=== PATIENT | male | born 1985 | race Caucasian/White ===

== ENCOUNTER 2023-11-22 18:20 | Emergency (ER) | payer OTHER, SELFPAY ==
--- NOTE | 2023-11-22 18:26 | ED.GENADULT ---
HPI - General Adult General Chief complaint: Ear Stated complaint: Ear Irritation Time Seen by Provider: 11/22/23 18:27 Source: patient, RN notes reviewed and old records reviewed Mode of arrival: ambulatory Limitations: no limitations History of Present Illness HPI narrative: 38-year-old male presents to the [facility] with right ear pressure. Has a history of tendinitis. States it has been worse over the last several days. Right ear pressure irritation for a couple of weeks. States he has taken Tylenol and Motrin, no other treatment prior to arrival States that he does use Q-tips Related Data Allergies Allergy/AdvReac Type Severity Reaction Status Date / Time No Known Allergies Allergy Verified 11/22/23 18:21 Review of Systems Review of Systems: All systems reviewed & are unremarkable except as noted in HPI and below Constitutional: Constitutional: Reports no additional constitutional complaints Eyes: Eyes: Reports no additional eye complaints ENT: Reports as per HPI and Reports otalgia Cardiovascular: Cardiovascular: Reports no additional cardiovascular complaints, Denies chest pain and Denies dyspnea Respiratory: Respiratory: Reports no additional respiratory complaints, Denies chest congestion, Denies cough and Denies dyspnea Gastrointestinal: Gastrointestinal: Reports no additional gastrointestinal complaints, Denies abdominal pain, Denies nausea and Denies vomiting Musculoskeletal: Musculoskeletal: Reports no additional musculoskeletal complaints Integumentary/Breasts: Skin/Breast: Reports system reviewed and no additional complaints, except as docu Neurologic: Reports system reviewed and no additional complaints, except as documented Psychiatric: Psychiatric: Reports no additional psychiatric complaints Allergic/Immunologic: Allergic/Immunologic: Reports no additional allergic/immunologic complaints PMFSH Social History Social History Smoking status: Never smoker Alcohol intake: current Comments At the time of my signature, I reviewed and agree with the nursing past medical, surgical, social, and family history. There is no relevant family history pertinent to the patient complaint. Exam Const: General: cooperative, healthy appearing, comfortable, no acute distress, well developed, alert and well nourished Nutritional Appearance: well nourished Orientation/consciousness: patient oriented x3 Limitations: no limitations HENMT: Head: normal to inspection Ears: hearing grossly normal bilaterally, external ears normal, Abnormal EAC present erythema on the right and edema on the right; no EA tenderness and no otic discharge and TM abnormal with fluid behind the TM bilateral (Clear fluid); not erythematous Face/Nose/Sinus: Normal external nose present, Normal nares present, Normal nasal mucous membranes and turbinates present, normal facial exam and face symmetric Face and sinus: normal facial exam and face symmetric Throat: posterior oropharynx normal, uvula midline and no uvular edema Eyes: General: appearance normal, both eyes and all related structures Alignment and Position: alignment normal Periorbital: periorbital findings normal Pupils: Equal, round and reactive pupils present EOM: EOMs intact bilaterally Neck: Neck: normal visual inspection, full ROM, no lymphadenopathy and no meningeal signs Chest: Chest palpation & inspection: normal inspection of the chest Resp: Effort & Inspection: normal respiratory effort and able to speak in complete sentences Auscultation: clear to auscultation bilaterally, no crackles, no rales, no rhonchi and no wheezes Cardio: Rate: regular rate Rhythm: regular rhythm Skin: General skin exam: normal color and no rashes or lesions noted Lesions: no lesions Rashes: no rashes Trauma: no lacerations or abrasions Wounds: no wounds Neuro: General: patient oriented x3, gait normal, tone normal, moves all ext
[2023-11-22 18:30] VITALS: BP 125/72; PULSE 58; RESP 18; TEMP 36.6; O2SAT 100
== END 2023-11-22 18:41 | disposition home or self-care (01) ==
PROVIDERS: Emergency Provider Nurse Practitioner; PCP Family Medicine
DX: H65.03 Acute serous otitis media, bilateral (principal); S00.412A Abrasion of left ear, initial encounter
CPT/HCPCS: 99213; G0463

== ENCOUNTER 2025-03-06 12:39 | Outpatient (CLI) | payer OTHER, SELFPAY ==
--- NOTE | 2025-03-06 12:49 | ECHO_ITS ---
Patient Info Name: Adair Stauffer Age: 39 years : 1985 Gender: Male Ht: 74 in Wt: 182 lbs BSA: 2.08 m2 HR: 56 bpm BP: 123 / 71 mmHg Heart Rhythm: Sinus Rhythm Technical Quality: Good Exam Date: 03/06/2025 12:51 PM Patient Status: O Admit Date: 03/06/2025 Exam Type: CA echo doppler color flow Complete two-dimensional, color flow and Doppler transthoracic echocardiogram is performed. Rack Worker: Eva Vega Attending Provider: Ari Brink Summary 1. Complete two-dimensional, color flow and Doppler transthoracic echocardiogram is performed. 2. Left ventricular chamber dimension is normal. 3. Left ventricular systolic function is normal, estimated at 65-70. 4. The left ventricular diastolic function is normal. 5. E/e' 7 is not elevated. 6. Left atrial chamber dimension is mildly enlarged. 7. There is mild aortic valve sclerosis. Left Ventricle Left ventricular chamber dimension is normal. Left ventricular systolic function is normal, estimated at 65-70. The left ventricular diastolic function is normal. E/e' 7 is not elevated. Right Ventricle Right ventricular chamber dimension is normal. Right ventricular systolic function is normal and with normal TAPSE 3.0 cm. Left Atria Left atrial chamber dimension is mildly enlarged. Right Atria Right atrial chamber dimension is normal. Aortic Valve The aortic valve is trileaflet. There is mild aortic valve sclerosis. There is no aortic valve stenosis. There is no aortic valve regurgitation. Pulmonic Valve There is no pulmonic regurgitation. Mitral Valve There is no mitral valve stenosis. There is no mitral valve regurgitation. Tricuspid Valve There is no tricuspid valve regurgitation. Pericardium/Pleural There is no pericardial effusion. Inferior Vena Cava Normal inferior vena cava with >50% collapse upon inspiration consistent with normal right atrial pressure, 5 mmHg. Aorta The aortic root size at the sinus of Valsalva is normal. Left Ventricular Outflow Tract Name Value Normal LVOT 2D LVOT Diameter 2.0 cm LVOT Doppler LVOT Peak Velocity 136 cm/s LVOT Peak Gradient 7 mmHg LVOT Mean Gradient 4 mmHg LVOT VTI 27 cm LVOT VTI/AV VTI Ratio 0.8 LVOT Stroke Volume 83 ml LVOT CO 4.4 l/min LVOT CI 2.1 l/min/m2 Pulmonic Valve Name Value Normal RVOT Doppler RVOT Peak Velocity 91 cm/s RVOT Peak Gradient 3 mmHg PV Doppler PV Peak Velocity 120 cm/s PV Peak Gradient 6 mmHg Mitral Valve Name Value Normal MV Diastolic Function MV E Peak Velocity 99 cm/s MV A Peak Velocity 45 cm/s MV E/A 2.2 MV Decel Time (PW) 161 ms MV Annular TDI MV E/e' (Septal) 9.5 MV E/e' (Lateral) 6.1 MV E/e' (Average) 7.8 Tricuspid Valve Name Value Normal Estimated PAP/RSVP RA Pressure 5 mmHg <=5 TV Annular TDI TV Lateral Kacey s' Velocity 16.4 cm/s >=9.5 Aorta Name Value Normal Ascending Aorta Ao Root Diameter (MM) 3.2 cm Ao Root Diam Index (MM) 1.5 cm/m2 Aortic Valve Name Value Normal AV Doppler AV Peak Velocity 156 cm/s AV Peak Gradient 10 mmHg AV Mean Gradient 5 mmHg AV VTI 33 cm AV Area (Cont Eq VTI) 2.5 cm2 >=3.0 AV Area (Cont Eq Raleigh) 2.7 cm2 AV DI (R[place]) 0.87 AV Regurgitation 2D LVOT Area 3.1 cm2 Ventricles Name Value Normal LV Dimensions 2D/MM IVS Diastolic Thickness (2D) 0.7 cm 0.6-1.0 LVID Diastole (2D) 5.7 cm 4.2-5.8 LVIW Diastolic Thickness (2D) 0.7 cm 0.6-1.0 LVID Systole (2D) 3.1 cm 2.5-4.0 LVOT Diameter 2.0 cm LV Mass (2D Cubed) 153.96 g 88.00-224.00 LV Mass Index (2D Cubed) 74 g/m2 49-115 Relative Wall Thickness (2D) 0.26 <=0.42 LV Fractional Shortening/Ejection Fraction 2D/MM LV Fractional Shortening (2D) 46 % 25-43 LV EF (2D Teichholz) 77 % LV Diastolic Volume (4C MOD) 105 ml LV EF (4C MOD) 71 % LV Diastolic Volume (2C MOD) 104 ml LV EF (2C MOD) 72 % LV Diastolic Volume (BP MOD) 105 ml 62-150 LV Diastolic Volume Index (BP MOD) 51 ml/m2 34-74 LV Systolic Volume (BP MOD) 30 ml 21-61 LV Systolic Volume Index (BP MOD) 14 ml/m2 11-31 LV EF (BP MOD) 72 % 52-72 LV Diastolic Length (4C) 8.6 cm LV Systolic Length (4C) 7.0 cm LV Stroke Volume (4C MOD) 75 ml Atria Name Value Normal LA Dimensions LA Dimension (MM) 4.8 cm 3.0-4.0 LA Volume (4C A-L) 62 ml LA Volume (BP A-L) 67 ml RA Dimensions RA Area (4C) 17.9 cm2 <=18.0 Report Signatures
--- OUTSIDE RECORDS SUMMARY | 2025-03-06 14:23 | XMS_ITS | Clinical Summary ---
Author Organization [facility] Address [address] [place] [place] [address] Care Team Providers Care Plant Anatomy Teacher Name Role Phone Timi Bello MD Primary Care Provider [phone] Source Comments [facility],non-owned Affiliates and Associated Physician Practices is amultiple site organization consisting of ambulatory clinics and hospital sitesin [place], [place], [place] and [place]. This disclosure is being madepursuant to the Care Everywhere program and may not contain all information available regarding this patient. Last updated 18.[facility] Allergies No known active allergies Medications * Be aware that medications may not be up to date on this document. Alwaysverify current medications with the patient. No known medications Social History Tobacco Use Types Packs/Day Years Used Date Smoking Tobacco: Never Smokeless Tobacco: Never Alcohol Use Standard Drinks/Week Comments Never 0 (1 standard drink = 0.6 oz pur e alcohol) Sex and Gender Information Value Date Recorded Sex Assigned at Not on file Legal Sex Male 1:17 PM REC[employer]IL SPRING W[employer]ER Gender Identity Not on file Sexual Orientation Not on file Last Filed Vital Signs Vital Sign Reading Time Taken Comments Blood Pressure 120/68 03/24/2024 11:37 AM [employer] Pulse 65 03/24/2024 11:37 AM [employer] Temperature - - Respiratory Rate - - Oxygen Saturation 100% 03/24/2024 11:37 AM [employer] Inhaled Oxygen Concentration - - Weight 87.5 kg (193 lb) 05/26/2024 10:48 AM [employer] Height 190.5 cm (6' 3) 05/26/2024 10:48 AM [employer]ING W[employer]ER Body Mass Index 24.12 05/26/2024 10:48 AM [employer]ING W[employer]ER Plan of Treatment Upcoming Encounters Date Type Department Care Team (Late st Contact Info) Description 05/11/2025 8:00 AM [employer]IL [employer]ING W[employer]ER Testing Visit [facility] [address] [place] [address] Hipolito LeiaLeila [address] [place], [place] [id number] 05/11/2025 8:30 AM [employer] Office Visit [facility] [address] [place] [address] Ramesh Ross MD [address] [place] [address] Health Maintenance Due Date Last Done Comments LIPID TESTING 1985 HIV SCREENING 07/29/1998 HEPATITIS C SCREENING 07/25/2001 DTAP/TDAP/TD VACCINES (1 - Tdap) 07/29/2002 HEPATITIS B VACCINE (1 of 3 - 19+ 3-dose series) 07/29/2002 HPV VACCINE (1 - 3-dose SCDM series) 07/29/2010 DEPRESSION SCREENING 05/03/2024 COVID-19 VACCINE (2 - 2024-2 6 season) 2025 04/11/2021 INFLUENZA VACCINE (#1) 2025 ZOSTER VACCINE (1 of 2) 07/29/2033 HIB VACCINE Aged Out No longer eligi ble based on patient's age to complete this topic MENINGOCOCCAL (Group B) VACC INE SHARED DECISION-MAKING Aged Out No longer eligibl e based on patient's age to complete this topic MENINGOCOCCAL GROUPS A/C/Y/W VACCINE Aged Out No longer eligible b ased on patient's age to complete this topic PNEUMOCOCCAL VACCINE Aged Out No long er eligible based on patient's age to complete this topic Insurance AETNA Care Teams Plant Anatomy Teacher Relationship Specialty Start Date End Date Timi Bello MD [address] [place] [address] PCP - General Family Medicine 03/24/24
--- OUTSIDE RECORDS SUMMARY | 2025-03-06 14:23 | XMS_ITS | Clinical Summary ---
Author Organization [facility] Address [address] [place] [address] Care Team Providers Care Artillery Specialist Name Role Phone Unavailable Primary Care Provider Unavailabl e Immunizations Immunization Administration Dates Next Due Covid-19, Mrna, Lnp-s, Pf, 30 Mcg/0.3 Ml Dose (P fizer) 04/11/2021 Social History Tobacco Use Types Packs/Day Years Used Date Smoking Tobacco: Never Assessed Sex and Gender Information Value Date Recorded Sex Assigned at Not on file Legal Sex Male 1:41 PM CDT Gender Identity Not on file Sexual Orientation Not on file Plan of Treatment Health Maintenance Due Date Last Done Comments Hepatitis C Virus (HCV) Screening 1985 TdaP Immunization 1985 Hepatitis B Immunization (1 of 3 - 19+ 3-dose series) 07/29/2002 Human Papillomavirus (HPV) Immunization (1 - 3-dose SCDM series) 07/29/2010 Influenza Immunization (#1) 2025 SARS-COV-2 Immunization ( season) 2025 04/11/2021 Respiratory Syncytial Virus (RSV) Immunization (Adult) (1 - 1-dose 75+ series) 07/29/2058 Meningococcal Immunization (ACWY) Aged Out No longer eligible based on patient's age to complete this topic Pneumococcal Immunization Combined Aged Out No longer eligible based on patient's age to complete this topic Rotavirus Immunization Aged Out No lo nger eligible based on patient's age to complete this topic
== END 2025-03-06 12:40 | disposition home or self-care (01) ==
LOC: ANHCARD 12:41
PROVIDERS: PCP Family Medicine; Visit Provider Nurse Practitioner Family
DX: I51.7 Cardiomegaly (principal); I35.8 Other nonrheumatic aortic valve disorders; G47.31 Primary central sleep apnea
CPT/HCPCS: 93306

== ENCOUNTER 2025-03-07 16:18 | Outpatient (CLI) | payer OTHER, SELFPAY ==
--- NOTE | ~2025-03-07 | XR_ITS ---
EXAMINATION: XR shoulder RT min 2V, 03/07/2025 16:23 PACKAGING LINE OPERATOR HISTORY: RT SHOULDER PAIN WORSENING PAST COUPLE OF MONTHS COMPARISON: No comparisons available. Findings: No acute fracture or malalignment. No significant degenerative changes. Soft tissues unremarkable. Impression: No acute fracture or malalignment. Reviewed, dictated and finalized at location P. AGING LINE OPERATOR Impression: No acute fracture or malalignment.
== END 2025-03-07 16:19 | disposition home or self-care (01) ==
LOC: MICIMG 16:19
PROVIDERS: PCP Family Medicine; Visit Provider Physician Assistant Medical
DX: M25.511 Pain in right shoulder (principal)
CPT/HCPCS: 73030

== ENCOUNTER 2025-04-23 08:00 | Outpatient (RCR) | payer OTHER, SELFPAY ==
--- NOTE | 2025-03-27 10:53 | PTOPEVAL1 ---
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 Reported Pain Level Pain Score 2: Self Report Additional Pain Score Comments pain range in the past week 1-01/10; sharp jolts last less than 1 minute with some quick motions; deep under back part of shoulder, not tender with touching anywhere over shoulder increase pain: reaching overhead, behind back, extend arm and reach out, lie on R side decrease pain: rest, over the counter PRN- 2-3x/wk , support under arm not using heat or ice- instruct on use 10-15 min PRN sleeping is OK, do not lie on R side, side he usually sleeps on some ache and pain in L shoulder since sleeping on that side and using L arm more Assessment PT Clinical Summary Adair has the diagnosis of R shoulder pain. He is R hand dominant, without a history of shoulder pain and had gradual increase in pain without direct trauma to shoulder. He is active and his job involves computer use. Quick DASH self rating of 32% limitation in activity level. X rays were negative. With the evaluation: decreased active ROM of R shoulder flexion, abduction and IR motions; most pain increase with IR; no tenderness to touch over shoulder-- deep in the shoulder joint, and towards back of shoulder; in standing has rounded shoulders and winging of R scapula. Skilled PT services are indicated for treatment of R shoulder impingement/rotator cuff pain: modalities to decrease pain, therapeutic exercises to increase shoulder ROM and strength with education for HEP, posture and body mechanics. Plan of Care Interventions Electrical Stimulation,Hot Pack/Cold Pack,Manual Therapy,Neuro Re-education,Patient/Caregiver Education,Therapeutic Activities,Therapeutic Exercise,Ultrasound,Other Other Interventions taping PT Services Indicated Yes Treatment Frequency and 1-2x/wk for 8 visits Duration These treatments will address the objective and functional deficits as defined above. The patient will be advanced safely and appropriately in order for the patient to progress towards his/her prior level of function. Additional exercises will be introduced and as well as a comprehensive home exercise program upon discharge, if needed, ?to ensure carryover of functional gains achieved in the clinic. This treatment plan has been reviewed and agreement upon by the patient.
--- NOTE | 2025-03-27 10:54 | OPREHPOC ---
Outpatient Therapy Plan of Care This is a Multidisciplinary Plan of Care that may contain components documented by all disciplines (PT, OT, and ST.) PT Problem 1 PT Problem #1 Knowledge Deficit PT Goal 1 Goal / Goal Update *independent with HEP Target Visit 8 PT Problem 2 PT Problem #2 Pain PT Goal 1 Goal / Goal Update 1* pt report pain rating at worst of 4/10 2* pt report times of NO pain 3* pt report able to lie on his R side 10 minutes Target Visit 8 PT Problem 3 PT Problem #3 Impaired Range of Motion PT Goal 1 Goal / Goal Update in standing R shoulder active ROM: 1* flexion 155' 2* abduction 145' 3* IR- reach behind back, palm to above waist Target Visit 8 PT Problem 4 PT Problem #4 Impaired Strength PT Goal 1 Goal / Goal Update increase strength of R shoulder, to improve reaching overhead ability and self care tasks standing with 3# hand weight x 5 reps: 1* flexion to 120' 2* abduction to 100' 3* ER with elbow at side 4* in standing, no winging of scapula 4* IR with elbow at side Target Visit 8
--- NOTE | 2025-04-23 08:50 | OPREHPOC ---
Outpatient Therapy Plan of Care This is a Multidisciplinary Plan of Care that may contain components documented by all disciplines (PT, OT, and ST.) PT Problem 1 PT Problem #1 Knowledge Deficit PT Goal 1 Goal / Goal Update *independent with HEP 04-23-25 d/c goal met Target Visit 8 Progress Met PT Problem 2 PT Problem #2 Pain PT Goal 1 Goal / Goal Update 1* pt report pain rating at worst of 4/10 2* pt report times of NO pain 3* pt report able to lie on his R side 10 minutes 04-23-25 d/c goal 3 met; #1 is 6/10 and #2 is 2/10 Target Visit 8 Progress Partially Met PT Problem 3 PT Problem #3 Impaired Range of Motion PT Goal 1 Goal / Goal Update in standing R shoulder active ROM: 1* flexion 155' 2* abduction 145' 3* IR- reach behind back, palm to above waist 04-23-25 d/c goals met Target Visit 8 Progress Met PT Problem 4 PT Problem #4 Impaired Strength PT Goal 1 Goal / Goal Update increase strength of R shoulder, to improve reaching overhead ability and self care tasks standing with 3# hand weight x 5 reps: 1* flexion to 120' 2* abduction to 100' 3* ER with elbow at side 4* in standing, no winging of scapula 4* IR with elbow at side 04-23-25 d/c goals met Target Visit 8 Progress Met
--- NOTE | 2025-04-23 08:50 | PTOPDC ---
Assessment and note entered by Leilani Castanon, PT Assessment Status Discharge ICD-10 Condition Codes (PT) Pain in right shoulder M25.511,Weakness R53.1 Onset August 2024 Subjective Information shoulder was doing good, then increased the weights and overdid it, made it sore; doing the exercises at home; feel like ready to go on my own with the exercises; Reported Pain Level Pain Score Self Report Additional Pain Score Comments pain range in the past week 2-6/10; tight and general pain in front of shoulder; no longer have the numbness or shooting pain increase pain: external rotation and reaching behind back or behind my body decrease pain: rest, stretching, over the counter med PRN able to lie on R shoulder ~ 1 hour with sleeping Assessment PT Clinical Summary Adair has received 8 PT sessions for R shoulder pain/impingement. With today's assessment: pain rating of 2-6/10; self assessment of 32% limitation in activity with Quick DASH; able to tolerate lying on his R side for about 1 hour with sleeping; pain increase with shoulder IR; good standing posture of his shoulder; education completed for HEP, posture, work station set up and pain management. R shoulder active ROM: flexion and abduction 165' ; IR- reaching towards back, palm to above waist and ER- reaching behind head, fingers to cervical spine. The goals were achieved, except pain rating. Discharge PT. He is to continue with his HEP and progress activity and strengthening as tolerated. Plan of Care PT Services Indicated No
== END 2025-04-24 16:20 | disposition home or self-care (01) ==
LOC: ANHPT 08:00
PROVIDERS: PCP Family Medicine; Visit Provider Physician Assistant Medical
DX: M25.511 Pain in right shoulder (principal)
CPT/HCPCS: 97014; 97110; 97140; 97161; 97530; G0283